=== PATIENT | female | born 1995 | race Caucasian/White ===

== ENCOUNTER 2020-11-04 17:50 | Emergency (ER) | payer OTHER, SELFPAY ==
[2020-11-04 18:03] VITALS: BP 113/64; PULSE 93; RESP 24; TEMP 37.7; O2SAT 99
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
== END 2020-11-04 18:27 | disposition home or self-care (01) ==
PROVIDERS: Emergency Provider Nurse Practitioner Family
DX: S41.112A Laceration without foreign body of left upper arm, initial encounter (principal); V89.2XXA Person injured in unspecified motor-vehicle accident, traffic, initial encounter
CPT/HCPCS: 99203; G0463